=== PATIENT | female | born 1950 | race American Indian/Alaskan Native ===

== ENCOUNTER 2017-07-22 10:59 | Day surgery (SDC) | payer BC ==
[~2017-07-22 10:59] MED LIST: OMNIPAQUE 300 MG/50 ML (CATH LAB) IV ONE; WATER FOR IRRIG STERILE IR ONE
[2017-07-22] MEDS ORDERED: ANCEF/STERILE WATER 2 GM/20 ML 2 GM/20 ML SYRINGE IV NR (11:00)
--- NOTE | 2017-07-22 11:53 | Anesthesia Consultation ---
Anesthesia Consult and Med Hx Date of service: 07/22/17 - Airway Anesthetic Teeth Evaluation: Good ROM Head & Neck: Adequate Mental/Hyoid Distance: Adequate Mallampati Class: Class II Intubation Access Assessment: Good - Pulmonary Exam CTA: Yes - Cardiac Exam Cardiac Exam: RRR - Pre-Operative Health Status ASA Pre-Surgery Classification: ASA1 Proposed Anesthetic Plan: General - Pulmonary Hx Smoking: No Hx Sleep Apnea: No (SHAHANA PRE SCREEN LOW RISK) - Cardiovascular System Hx Hypertension: No - Central Nervous System Hx Neuromuscular Disorder: No Hx Back Pain: No Hx Psychiatric Problems: No - Gastrointestinal Hx Gastroesophageal Reflux Disease: No - Endocrine Hx Renal Disease: No Hx Insulin Dependent Diabetes: No Hx Non-Insulin Dependent Diabetes: No Hx Thyroid Disease: No - Other Systems Hx Alcohol Use: Yes (WINE/ EVERY 6 MONTHS) Hx Substance Use: No Hx Cancer: No Hx Obesity: No
--- NOTE | 2017-07-22 11:53 | Anesthesia Day of Surgery ---
Anesthesia Day of Surgery - Day of Surgery Patient Examined: Yes Patient H&P Reviewed: Yes Patient is NPO: Yes
[2017-07-22] MEDS ORDERED: ZOFRAN IV PRN (11:54)
[2017-07-22] MEDS ORDERED: DILAUDID IV PRN (11:54)
[2017-07-22] MEDS ORDERED: PERCOCET 5/325 PO PRN (11:54)
[2017-07-22] MEDS ORDERED: ZOFRAN ONE (12:00)
[2017-07-22] MEDS ORDERED: VERSED IV NR (12:00)
[2017-07-22] MEDS ORDERED: LACTATED RINGERS 1,000 ML IV SCH (12:00)
[2017-07-22] MEDS ORDERED: DECADRON ONE (12:00)
[2017-07-22] MEDS ORDERED: NEO SYNEPHRINE/NS Syringe(OR USE) IV ONE (12:00)
[2017-07-22] MEDS ORDERED: PEPCID PO NR (12:00)
[2017-07-22] MEDS ORDERED: XYLOCAINE MPF 2% ONE (12:41)
[2017-07-22] MEDS ORDERED: SUBLIMAZE ONE (12:41)
[2017-07-22] MEDS ORDERED: DIPRIVAN 10 MG/ML IV ONE (12:41)
[2017-07-22] MEDS ORDERED: WATER FOR IRRIG STERILE IR ONE (13:27)
[2017-07-22] MEDS ORDERED: OMNIPAQUE 300 MG/50 ML (CATH LAB) IV ONE (13:31)
--- NOTE | 2017-07-22 14:12 | Post Anesthesia Evaluation ---
- Post Anesthesia Evaluation Patient Participated: Yes Airway Patent: Yes Stable Respiratory Function: Yes Temp > 96.8F: Yes Pain Manageable: Yes Adequeate Hydration: Yes Anesthesia Complications: No
--- NOTE | 2017-07-22 14:36 | Fluoroscopy Report ---
Retrograde pyelogram: Renal calculus. The precontrasted images demonstrate a calculus overlying the lower region of the right kidney and several calculi overlying the region of the left kidney. Injection of contrast on the left side demonstrates good opacification of the ureter and intrarenal collecting system. No filling defects and no obstruction noted. The calculi are obscured by the renal. Injection of contrast into the right ureter demonstrates mild dilatation of the ureter and a proximal kink. The renal collecting system appears slightly patulous but there is no blunting of the calyces. In the inferior infundibulum there is a filling defect consistent with the calculus location. Impressions: 1. Inferior right infundibulum calculus. 2. Probable multiple left renal calculi.
[2017-07-22 14:49] VITALS: BP 127/60
--- NOTE | 2017-07-22 15:02 | Operative Report ---
PREOPERATIVE DIAGNOSES: Right hydronephrosis, right upper ureteral stone, severe kinking of the ureter. POSTOPERATIVE DIAGNOSES: Right hydronephrosis, right upper ureteral stone, severe kinking of the ureter. PROCEDURE: Cystoscopy, retrograde with attempted insertion of wire and straightening the ureter. SURGEON: Guevara Gibbons MD ANESTHESIA: General. FINDINGS: This is a woman with intermittent right flank pain. She has an 8 mm upper ureteral stone, which is not well seen on the photo stylist film. She now presents for treatment. She has had previous percutaneous procedure. DESCRIPTION OF PROCEDURE: The patient was brought to the operating room and placed on the operating table. Following induction of anesthesia, placed in lithotomy position, prepped and draped in usual sterile fashion. 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 Retrograde on the left side showed good drainage with no persistent filling defects and on the right side, the calices are preserved. There was a stone in the lower pole. I do not know on the retrograde reposed in the lower pole, but it looks like it's there on the photo stylist film, but there is severe tortuosity of like an S-shaped upper ureter. We placed an open-ended and followed up to the kink and we could not unkink it either with wire. I did not want to damage the ureteropelvic junction. We reinjected the dye. There was no extravasation, just kinking, and we did see under and the contrast come down. I reviewed the films with the radiologist. At this point, I think the best thing would probably be a percutaneous nephrostomy and straighten the ureter, maybe we can go from above or below once the ureter is straight, but I did not feel comfortable without a wire in the collecting system to do ureteroscopy. I did not want to avulse the UPJ or damage the UPJ. So, the plan will be elective percutaneous nephrostomy and then stenting from above, which may be more successful and then either go for above or below to get the stone out, brought to recovery in stable condition. JOB# [id number] BRIA/ENRIQUETA
--- NOTE | 2017-07-22 15:48 | Post Operative Note ---
Date of procedure: 07/22/17 Pre-op diagnosis: r hydro ..ureteral stone Post-op diagnosis: same Findings: stone transposed rlp severe kink r upper ureter Procedure: cysto rpgs attempted stent Anesthesia: DG Surgeon: LUKAS SU Estimated blood loss: none Pathology: none Condition: stable Disposition: PACU
--- NOTE | 2017-07-22 15:50 | Discharge Summary ---
Short Stay Discharge Plan Activity: other (no staining ) Weight Bearing Status: Full Weight Bearing Diet: low fat, low cholesterol, low salt Special Instructions: other (inc fluids) Follow up with: HELADIO WALKER NP [Primary Care Provider] - 7 Days LUKAS SU MD [Staff Physician] - 3 Days
== END 2017-07-22 16:30 | disposition home or self-care (01) ==
LOC: OR 10:59
PROVIDERS: ATTEND Urology
DX: N13.2 Hydronephrosis with renal and ureteral calculous obstruction (principal); N30.80 Other cystitis without hematuria; Z88.2 Allergy status to sulfonamides; Z79.899 Other long term (current) drug therapy
CPT/HCPCS: 52005; 74420; A4217; C1726; C1758; C1769; J0690; J1100; J2250; J2370; J2405; J2704; J3010; J7120; Q9967

== ENCOUNTER 2017-11-02 06:50 | Day surgery (SDC) | payer BC ==
[~2017-11-02 06:50] MED LIST changes: +ANCEF/STERILE WATER 2 GM/20 ML 2 GM/20 ML SYRINGE IV NR; +NACL 0.9% 1000 ML 1,000 ML IV SCH; -OMNIPAQUE 300 MG/50 ML (CATH LAB) IV ONE; -WATER FOR IRRIG STERILE IR ONE
[2017-11-02 08:10] LABS: Basophils % (Auto) 0.9 % (0.0-1.8); Eosinophils # (Auto) 0.1 K/mm3 (0.0-0.4); Eosinophils % (Auto) 1.4 % (0.0-4.3); Hematocrit 38.7 % (30.3-42.9); Lymphocytes # (Auto) 1.3 K/mm3 (1.2-5.4); Lymphocytes % (Auto) 33.7 % (13.4-35.0); Mean Corpuscular HGB Conc 34 % (30-34); Mean Corpuscular Hemoglobin 32 pg (28-32); Mean Corpuscular Volume 94 fl (79-97); Monocytes # (Auto) 0.3 K/mm3 (0.0-0.8); Monocytes % (Auto) 8.4 % (0.0-7.3); Platelet Count 138 K/mm3 (140-440); Red Blood Count 4.12 M/mm3 (3.65-5.03); Red Cell Distribution Width 14.1 % (13.2-15.2)
[2017-11-02 08:20] LABS: BUN/Creatinine Ratio 18; Blood Urea Nitrogen 11 mg/dL (7-17); Calcium 8.5 mg/dL (8.4-10.2); Hemolysis Index 4
[2017-11-02 08:22] LABS: INR 0.95 (0.87-1.13)
[2017-11-02 08:23] LABS: Partial Thromboplastin Time 28.3 Sec. (24.2-36.6)
[2017-11-02] MEDS ORDERED: NACL 0.9% 500 ML IR ONE (11:58)
[2017-11-02] MEDS ORDERED: LEVAQUIN 500MG/100ML 500 MG/100 ML BAG IV ONE (11:59)
[2017-11-02] MEDS ORDERED: VERSED ONE (11:59)
[2017-11-02] MEDS ORDERED: XYLOCAINE 2% INFILTRATI ONE (11:59)
[2017-11-02] MEDS: SUBLIMAZE ONE ×2 (12:11→12:47)
[2017-11-02] MEDS ORDERED: NORCO 5/325 ONE (13:35)
[2017-11-02] MEDS ORDERED: NORCO 5/325 PO ONE (13:40)
--- NOTE | 2017-11-02 14:11 | Operative Report ---
Operative Report Operative Report: Procedure: 1. Ultrasound-guided access of the right kidney 2. Right antegrade nephrostogram 3. Placement of a 5 Peruvian pigtail catheter as a nephroureteral catheter Date of Procedure: 11/02/2017 History/Indication: 67-year-old female with a history of right sided renal calculi. Access to the urinary bladder from an antegrade approach is needed in preparation for lithotripsy. Physician: Lisbeth Taylor MD Technique/Procedural Details: The patient was placed in the prone position and prepped and draped in the usual sterile fashion. A timeout was performed. Sonographic evaluation of the right upper quadrant was performed. A site was selected, and local anesthetic was administered. Under continuous ultrasound guidance, a posterior lower pole calyx was accessed with a 21-gauge needle. This needle was exchanged over a [place] wire for an Accu stick system. Via the Accu stick system, a Glidewire was advanced into the kidney and maneuvered into the ureter. A vertebral catheter was advanced over the Glidewire, and this combination of wire and catheter was used to traverse the distal ureter and enter the urinary bladder. Contrast was injected to confirm placement within the bladder. An Amplatz wire was inserted , and the 4 Peruvian vertebral catheter was exchanged for a 5 Peruvian pigtail catheter. Contrast was again injected. A final image was acquired, and the catheter was sutured to the skin with 2-0 Ethilon suture. Discussion: There is mild hydronephrosis. There is a filling defect in a posterior lower pole calyx consistent with a known calculus. The ureter is very tortuous and somewhat dilated. There was difficulty in traversing the ureterovesical junction due to an obstructing stone in this region. There is successful placement of a 5 Peruvian pigtail catheter in the urinary bladder. Specimen: None EBL: <5 cc
[2017-11-02] MEDS ORDERED: ZOFRAN ONE (14:23)
[2017-11-02] MEDS ORDERED: ZOFRAN IV ONE (15:00)
[2017-11-02 15:30] VITALS: BP 148/79
== END 2017-11-02 14:55 | disposition home or self-care (01) ==
LOC: CATHLABREC 06:50
PROVIDERS: ATTEND Radiology Diagnostic Radiology
DX: N13.2 Hydronephrosis with renal and ureteral calculous obstruction (principal); Z79.01 Long term (current) use of anticoagulants
CPT/HCPCS: 36415; 50433; 80048; 85025; 85610; 85730; 96374; 99156; 99157; C1751; C1769; J1956; J2250; J2405; J3010; J7030; Q9967

== ENCOUNTER 2017-11-06 06:17 | Day surgery (SDC) | payer BC ==
[~2017-11-06 06:17] MED LIST changes: -NACL 0.9% 1000 ML 1,000 ML IV SCH
[2017-11-06] MEDS ORDERED: NACL BACTERIOSTATIC INFILTRATI ONE (06:26)
--- NOTE | 2017-11-06 07:20 | Anesthesia Consultation ---
Anesthesia Consult and Med Hx Date of service: 11/06/17 - Airway ROM Head & Neck: Adequate Mental/Hyoid Distance: Adequate Mallampati Class: Class II Intubation Access Assessment: Probably Good - Pulmonary Exam CTA: Yes - Pre-Operative Health Status ASA Pre-Surgery Classification: ASA2 Proposed Anesthetic Plan: General - Pre-Anesthesia Comment Pre-Anesthesia Comments: hx thrombocytopenia (resolved), chrissy. knee pain, glaucome and cataracts, kidney stone, nephostomy tube - Pulmonary Hx Smoking: No Hx Sleep Apnea: No (SHAHANA PRE SCREEN LOW RISK) - Cardiovascular System Hx Hypertension: No - Central Nervous System Hx Neuromuscular Disorder: No Hx Back Pain: No Hx Psychiatric Problems: No - Gastrointestinal Hx Gastroesophageal Reflux Disease: No - Endocrine Hx Renal Disease: No Hx Insulin Dependent Diabetes: No Hx Non-Insulin Dependent Diabetes: No Hx Thyroid Disease: No - Other Systems Hx Alcohol Use: Yes (WINE/ EVERY 6 MONTHS) Hx Substance Use: No Hx Cancer: No Hx Obesity: No
--- NOTE | 2017-11-06 07:21 | Anesthesia Day of Surgery ---
Anesthesia Day of Surgery - Day of Surgery Patient Examined: Yes Patient H&P Reviewed: Yes Patient is NPO: Yes
[2017-11-06] MEDS ORDERED: VERSED ONE (07:24)
[2017-11-06] MEDS ORDERED: NACL 0.9% 1000 ML 1,000 ML ONE (07:24)
[2017-11-06] MEDS ORDERED: XYLOCAINE MPF 2% ONE (07:25)
[2017-11-06] MEDS ORDERED: DIPRIVAN 10 MG/ML IV ONE ×2 (07:25→11:10)
[2017-11-06] MEDS: NACL 0.9% 1000 ML 1,000 ML IV SCH ×2 (07:27→09:26)
[2017-11-06] MEDS ORDERED: VERSED IV NR (07:30)
[2017-11-06] MEDS ORDERED: PEPCID IV NR (07:30)
[2017-11-06] MEDS ORDERED: TYLENOL PO PRN (07:30)
[2017-11-06] MEDS ORDERED: SUBLIMAZE ONE (07:58)
[2017-11-06] MEDS ORDERED: ANCEF/STERILE WATER 2 GM/20 ML 2 GM/20 ML SYRINGE IV NR (08:00)
--- NOTE | 2017-11-06 08:29 | Post Operative Note ---
Date of procedure: 11/06/17 Pre-op diagnosis: r ureteral stone Post-op diagnosis: same Findings: huge stone Procedure: cysto rpg ureteroscopy laser j stent Anesthesia: GETA Surgeon: LUKAS SU Estimated blood loss: none Pathology: list (stones) Specimen disposition: given to patient/family Condition: stable Disposition: PACU
--- NOTE | 2017-11-06 08:31 | Discharge Summary ---
Short Stay Discharge Plan Activity: other (no straining ) Weight Bearing Status: Full Weight Bearing Diet: regular, low salt Special Instructions: other (inc fluids ) Durable Medical Equipment Needed Upon Discharge: other (j stent ) Follow up with: HELADIO WALKER NP [Primary Care Provider] - 7 Days LUKAS SU MD [Staff Physician] - 14 Days
[2017-11-06] MEDS: DILAUDID IV PRN ×4 (08:51→09:15)
[2017-11-06] MEDS: ZOFRAN IV PRN ×2 (09:12→09:14)
[2017-11-06] MEDS ORDERED: PHENERGAN PO NR (09:45)
[2017-11-06] MEDS ORDERED: DECADRON IV ONE (11:00)
--- NOTE | 2017-11-06 11:08 | Operative Report ---
PREOPERATIVE DIAGNOSIS: Right distal ureteral stone, severe S-shaped upper ureteral kinking. POSTOPERATIVE DIAGNOSES: Right distal ureteral stone, severe shaped upper ureteral kinking. PROCEDURE: Cystoscopy, right ureteroscopy, laser and extraction of large stone distal ureter, double-J stent. SURGEON: Guevara Gibbons MD ANESTHESIA: General. FINDINGS: This is a woman with a very tortuous ureter, had a large distal stone. Percutaneous nephroureteral stent was placed. She now presents for treatment. DESCRIPTION OF PROCEDURE: The patient was brought to the operating room and placed on the operating table. Following induction of anesthesia, placed in lithotomy position, prepped and draped in sterile fashion. A cystoscopy was carried out and the stent was grasped. A wire was placed through the opening and brought out through the flank. The nephroureteral stent was back loaded off of the wire. Wire was clamped at the level of the kidney and bladder. Ureteroscopy was carried out, it showed a very large stone, which was fragmented into many pieces. Multiple pieces were extracted and left on the chart. The patient tolerated the procedure well. A double J coil in the kidney and bladder, brought to recovery in stable condition. JOB# [id number] BRIA/ENRIQUETA
[2017-11-06 12:12] VITALS: BP 136/71
--- NOTE | 2017-11-06 15:39 | Post Anesthesia Evaluation ---
- Post Anesthesia Evaluation Patient Participated: Yes Airway Patent: Yes Stable Respiratory Function: Yes Nausea/Vomiting: No Temp > 96.8F: Yes Pain Manageable: Yes Adequeate Hydration: No Other Comments: patient had significant PONV. she recieved zofran intraop. in recovery room she was given- decadron, phenargan. not a good candidate for scopolamine patch since she has glaucoma. recived IV propofol 30+ 20 mg. nausea resolved prior to discharge
--- NOTE | 2017-11-07 09:31 | Fluoroscopy Report ---
SIX FLUOROSCOPIC IMAGES AT RIGHT RETROGRADE PYELOGRAM AND STENT PLACEMENT: 11/06/17 CLINICAL: Right ureteral calculus. FINDINGS: Medical Insurance Clerk images demonstrate a distal right ureteral calculus with a stent in place.. Subsequent images demonstrate retrograde opacification of a moderately dilated right ureter. The calculus was broken and the stent was replaced. Final images show ureteral stent with no residual calculus. For more detail, please refer to the operative report.
== END 2017-11-06 12:45 | disposition home or self-care (01) ==
LOC: OR 06:17
PROVIDERS: ATTEND Urology
DX: N20.1 Calculus of ureter (principal); N28.89 Other specified disorders of kidney and ureter; Z88.2 Allergy status to sulfonamides
CPT/HCPCS: 52356; 74420; C1758; C1769; C2617; J0690; J1100; J1170; J2250; J2405; J2704; J3010; J7030; Q9967; Q0169